=== PATIENT | male | born 1970 | race Caucasian/White ===

== ENCOUNTER 2020-02-23 17:15 | Emergency (ER) | payer MEDICAID ==
[~2020-02-23] VITALS: Ht 167.6 cm; Wt 85.0 kg
[~2020-02-23 17:15] MED LIST: ATENOLOL
[2020-02-23] MEDS ORDERED: KETOROLAC 60MG/2ML VIAL IM ONE (18:00)
[2020-02-23] MEDS ORDERED: LIDOCAINE HCL 1% 20ML VIAL (Pyxis) INJ INFIL ONE (18:45)
[2020-02-23] MEDS ORDERED: LORAZEPAM 1MG TABLET PO ONE (18:45)
[2020-02-23 21:33] VITALS: BP 150/90
== END 2020-02-23 21:33 | disposition home or self-care (01) ==
LOC: ER 17:15
DX: S93.115A Dislocation of interphalangeal joint of left lesser toe(s), initial encounter (principal); W20.8XXA Other cause of strike by thrown, projected or falling object, initial encounter; Y93.H9 Activity, other involving exterior property and land maintenance, building and construction; Y92.017 Garden or yard in single-family (private) house as the place of occurrence of the external cause; I10 Essential (primary) hypertension
CPT/HCPCS: 73630; 96372; 99283; J1885; J3490

== ENCOUNTER 2021-04-28 12:45 | Inpatient (IN) | payer MEDICAID, OTHER ==
[~2021-04-28] VITALS: Ht 167.6 cm; Wt 86.0 kg
[2021-04-28 13:12] LABS: BASOPHILS % 0.3 % (0.0-2.0); EOSINOPHILS % 6.4 % (0.0-5.0); HEMATOCRIT. 54.4 % (42.0-52.0); HEMOGLOBIN. 19.3 g/dL (14.0-18.0); MEAN CORPUSCULAR HEMOGLOBIN 30.5 pg (28.0-32.0); MEAN CORPUSCULAR VOLUME 85.8 fL (80.0-94.0); MEAN PLATELET VOLUME 9.2 fl (7.4-10.4); MONOCYTES % 8.6 % (2.0-8.0); NEUTROPHILS % 70.7 % (40.0-76.0); PLATELET 171 x1000/uL (130-400); RED BLOOD CELL COUNT 6.34 mill/uL (4.7-6.1); RED CELL DISTRIBUTION WIDTH 14.2 % (11.6-14.6)
[2021-04-28 13:22] LABS: CHLORIDE 107 mEq/L (98-107)
[2021-04-28 16:21] LABS: CLARITY URINE CLEAR (CLEAR); COLOR URINE DARK YELLOW (YELLOW); KETONES URINE 1+ (NEGATIVE); LEUKOCYTE ESTERASE URINE TRACE (NEGATIVE); NITRITE URINE NEGATIVE (NEGATIVE); OCCULT BLOOD URINE NEGATIVE (NEGATIVE); PH URINE 5.5 (4.5-8.0); PROTEIN URINE 2+ (NEGATIVE); SPECIFIC GRAVITY URINE 1.029 (1.005-1.030)
[2021-04-28] MEDS ORDERED: KETOROLAC 60MG/2ML VIAL IM ONE (17:00)
[2021-04-28] MEDS ORDERED: MORPHINE SULFATE 4 MG/ML CPJ (NOT FOR IM USE) IV ONE (17:30)
[2021-04-28] MEDS: CEFTRIAXONE 1 G PREMIX 50 ML IV ONE ×2 (17:40→18:02)
[2021-04-28] MEDS ORDERED: FAMOTIDINE 20MG/2ML VIAL IV ONE (19:00)
[2021-04-28] MEDS ORDERED: SODIUM CHLORIDE 0.9% 1,000 ML IV ONE (19:00)
[2021-04-28] MEDS ORDERED: MAGNESIUM/ALUMINUM HYDROXIDE/SIMETHICONE 30ML UDC PO ONE (19:00)
[2021-04-29] MEDS ORDERED: SODIUM CHLORIDE 0.9% 1,000 ML IV SCH (00:15)
[2021-04-29] MEDS ORDERED: ONDANSETRON HCL 4MG/2ML INJ IV PRN (00:15)
[2021-04-29] MEDS ORDERED: NALOXONE HCL 0.4 MG/ML 1ML VIAL IV PRN (00:15)
[2021-04-29] MEDS: MORPHINE SULFATE 2 MG/ML CPJ (NOT FOR IM USE) IV PRN ×2 (00:52→05:23)
[2021-04-29] MEDS ORDERED: PANTOPRAZOLE SODIUM 40 MG/VIAL IV SCH (09:00)
[2021-04-29] MEDS ORDERED: PANT40TA51 MT (09:54)
[2021-04-29 10:50] VITALS: BP 145/103
[2021-04-29] MEDS ORDERED: CEFTRIAXONE 1,000 MG in DEXTROSE 5% WATER 50 ML IV SCH (18:00)
== END 2021-04-29 11:51 | disposition home or self-care (01) | DRG 241 ==
LOC: ER 12:45 → MICUSO 19:52 → EDBEDREQ 20:00 → EDBEDREQTM 20:00
PROVIDERS: ADMIT Internal Medicine; ATTEND Internal Medicine
DX: K29.70 Gastritis, unspecified, without bleeding (principal); K76.0 Fatty (change of) liver, not elsewhere classified; E11.9 Type 2 diabetes mellitus without complications; N20.0 Calculus of kidney; Z20.822 Contact with and (suspected) exposure to COVID-19; K27.9 Peptic ulcer, site unspecified, unspecified as acute or chronic, without hemorrhage or perforation; E87.6 Hypokalemia; I10 Essential (primary) hypertension; R80.9 Proteinuria, unspecified; Z90.49 Acquired absence of other specified parts of digestive tract; Z79.899 Other long term (current) drug therapy
CPT/HCPCS: 36415; 74176; 80053; 81003; 83605; 85025; 87426; 99285; J0696; J1885; J2270; J2405; J3490; J7030; J7060

== ENCOUNTER 2023-01-29 05:30 | Emergency (ER) | payer MEDICAID ==
[~2023-01-29] VITALS: Ht 167.6 cm; Wt 84.8 kg
[~2023-01-29 05:30] MED LIST changes: +PANT40TA51 MT
[2023-01-29 05:56] VITALS: TEMP 98.6; O2SAT 98
[2023-01-29] MEDS ORDERED: KETOROLAC 60MG/2ML VIAL IM ONE (08:30)
[2023-01-29] MEDS ORDERED: CEPH500C2 MT (08:32)
[2023-01-29] MEDS ORDERED: HYDROCODONE/ACETAMINOPHEN 5/325MG TABLET PO ONE (09:30)
[2023-01-29 09:39] VITALS: BP 128/97; PULSE 87; RESP 16
== END 2023-01-29 09:42 | disposition home or self-care (01) ==
LOC: ER 05:30
DX: L02.412 Cutaneous abscess of left axilla (principal); I10 Essential (primary) hypertension; Z90.49 Acquired absence of other specified parts of digestive tract
CPT/HCPCS: 99285; 76942; 96372; J1885